=== PATIENT | male | born 1990 | race Caucasian/White ===

== ENCOUNTER 2017-09-20 03:50 | Emergency (ER) | payer SELFPAY ==
[2017-09-20] MEDS ORDERED: METOCLOPRAMIDE 10 MG TAB PO ONE (06:11)
--- NOTE | 2017-09-20 06:12 | EDPHY ---
H & P Stated Complaint: Gastritis pain and anxiety Time Seen by Provider: 09/20/17 05:57 HPI/ROS: HPI The patient presents with epigastric abdominal pain leading to anxiety attack, coming in from home. The patient has a history of gastritis for the last 1.5 years he has tried dietary modification with minimal success and thus began taking a PPI about 30 days ago with some improvement in his symptoms. Last night for dinner he 8 7 tacos and he developed epigastric abdominal pain which felt like his usual gastritis. This induced a panic attack, he had feelings of anxiety, impending doom, that his heart was racing. He took a dose of Ativan 1 mg by mouth with improvement in his symptoms, however he continues to feel a moderately anxious so comes into the emergency department. He denies any SI or HI. He has been taking Ativan only on occasion for anxiety. His epigastric pain can induce anxiety attacks per his report.. REVIEW OF SYSTEMS Constitutional: No fever, no chills. Eyes: No discharge. ENT: No sore throat. Cardiovascular: No chest pain, no palpitations. Respiratory: No cough, no shortness of breath. Gastrointestinal: Positive for abdominal pain, no vomiting. Genitourinary: No hematuria. Musculoskeletal: No back pain. Skin: No rashes. Neurological: No headache. PMHx: History of anxiety, history of gastritis Soc Hx: Denies recent alcohol use PHYSICAL General Appearance: Alert, no distress Eyes: Pupils equal and round no pallor or injection ENT, Mouth: Mucous membranes moist Respiratory: There are no retractions, lungs are clear to auscultation Cardiovascular: Regular rate and rhythm Gastrointestinal: Abdomen is soft and non-tender, no masses, bowel sounds normal Neurological: A&O, moves all extremities Skin: Warm and dry, no rashes Musculoskeletal: Neck is supple non tender Extremities: symmetrical, full range of motion Psychiatric: Patient is oriented X 3, there is no agitation Source: Patient Exam Limitations: No limitations - Personal History Current Tetanus/Diphtheria Vaccine: No Current Tetanus Diphtheria and Acellular Pertussis (TDAP): No - Medical/Surgical History Hx Asthma: No Hx Chronic Respiratory Disease: No Hx Diabetes: No Hx Cardiac Disease: No Hx Renal Disease: No Hx Cirrhosis: No Hx Alcoholism: No Hx HIV/AIDS: No Hx Splenectomy or Spleen Trauma: No Other PMH: Anxiety, gastritis, ADHD, - Social History Smoking Status: Former smoker Constitutional: Initial Vital Signs Temperature (C) 36.4 C 09/20/17 03:55 Heart Rate 88 09/20/17 03:55 Respiratory Rate 16 09/20/17 03:55 Blood Pressure 120/87 H 09/20/17 03:55 O2 Sat (%) 95 09/20/17 03:55 O2 Delivery Mode Room Air Allergies/Adverse Reactions: No Known Allergies Allergy (Unverified 09/20/17 03:57) Home Medications: Medication Instructions Recorded Ativan 2 mg tab 09/20/17 Protonix 09/20/17 Medical Decision Making Differential Diagnosis: 27-year-old man with history of gastritis and anxiety presents with worsening symptoms of gastritis after eating 7 tacos for dinner, subsequently developing an anxiety attack with insomnia. Here, he is feeling somewhat better after taking his Ativan 1 mg at home. Differential diagnosis includes anxiety attack, worsening gastritis, insomnia. I doubt pancreatitis, biliary colic. He does not have any SI or HI. He has a benign abdominal exam. He would like a medication for nausea and I will give him a dose of Reglan. I have advised him that he is safe for discharge at this time. He could take a 2nd dose of Ativan upon returning home and see if he could get some rest. He has a follow-up psychiatrist appointment in 2 days which I feel is appropriate. I have mentioned to him cognitive behavioral therapy for his anxiety and he is somewhat receptive. Departure - Departure Disposition: Home, Routine, Self-Care Clinical Impression: Anxiety Gastritis Qualifiers: Gastritis type: unspecified gastritis Chronicity: chronic Gastritis bleeding: without bleeding Qualified Code(s): K29.50 - Unspecified chronic gastritis without bleeding Condition: Good Instructions: Gastritis (ED), Anxiety (ED), Anxiolysis in Adults (ED) Additional Instructions: Please return to the emergency department if your worse in any way. Please follow-up with your regular doctor. Referrals: Linwood Jade MD [Primary Care Provider] - As per Instructions
[2017-09-20 06:24] VITALS: BP 123/80
== END 2017-09-20 06:24 | disposition home or self-care (01) ==
DX: F41.9 Anxiety disorder, unspecified (principal); K29.50 Unspecified chronic gastritis without bleeding; Z87.891 Personal history of nicotine dependence